=== PATIENT | male | born 1970 | race Caucasian/White ===

== ENCOUNTER → 2024-03-21 | Emergency (ER) | payer OTHER, MEDICAID ==
[~2024-03-21] VITALS: Ht 162.6 cm; Wt 72.6 kg
[~2024-03-21] MED LIST: CLON0.5T2; DIVA500T2; ETOMIDATE 20 MG/ 10 ML VIAL (AMIDATE) ONE; EZET10TA; GLYB1TAB3; HYDR-3917 PO; INSU100V46; LACO100T2; LISI5TAB; PIOG30TA70; PROPOFOL DRIP 100 ML IV ONE; SIMV80TA88; TOPI100T11
[2024-03-21 08:06] VITALS: BP_SYST 138; PULSE 81; RESP 18; TEMP 98.3; O2SAT 95
[2024-03-21] MEDS: HYDROcodone/ACETAMIN 10-325 MG TAB PO ONE (08:34)
[2024-03-21 10:38] LABS: BASOPHILS % (AUTO) 0.2 % (0.0-2.0); EOSINOPHILS % (AUTO) 0.2 % (0.0-4.0); HEMATOCRIT 42.2 % (36-54); HEMOGLOBIN 14.7 g/dL (14.0-18.0); LYMPHOCYTES # (AUTO) 2.1 K/uL (1.0-5.5); LYMPHOCYTES % (AUTO) 10.8 % (20.5-51.5); MEAN CORPUSCULAR HEMOGLOBIN 31 pg (27-31); MEAN CORPUSCULAR HGB CONC 35 % (32-36); MEAN CORPUSCULAR VOLUME 90 fL (79.0-98.0); MONOCYTES # (AUTO) 1.1 K/uL (0.0-1.0); MONOCYTES % (AUTO) 5.5 % (1.7-9.3); NEUTROPHILS # (AUTO) 16.2 K/uL (1.8-7.7); NEUTROPHILS % (AUTO) 83.3 % (40.0-70.0); PLATELET COUNT (AUTO) 300 K/uL (130-430); RED CELL DISTRIBUTION WIDTH 13.7 % (9.0-15.0); WHITE BLOOD COUNT (AUTO) 19.5 K/uL (4.8-10.8)
[2024-03-21 10:46] LABS: ALANINE AMINOTRANSFERASE 36 U/L (12-78); ANION GAP 15 (5-15); ASPARTATE AMINOTRANSFERASE 22 U/L (10-37); BILIRUBIN,DIRECT 0.1 mg/dL (0.0-0.3); CALCIUM 8.8 mg/dL (8.4-11.0); CARBON DIOXIDE 18 mmol/L (23-29); CHLORIDE 100 mmol/L (98-107); CREATININE 1.22 mg/dL (0.55-1.30); GFR AFRICAN AMERICAN 79 mL/min (>90); GLUCOSE 227 mg/dL (74-106); POTASSIUM 4.3 mmol/L (3.5-5.1); SODIUM SERUM 133 mmol/L (136-145); TOTAL BILIRUBIN 0.3 mg/dL (0.0-1.0); TOTAL PROTEIN, SERUM 7.9 g/dL (6.4-8.3); UREA NITROGEN, BLOOD 23 mg/dL (8-21)
[2024-03-21 10:50] LABS: GFR NON AFRICAN-AMERICAN 66 mL/min (>90)
[2024-03-21] MEDS: NACL 0.9% 1,000 ML IV ONE (11:33)
[2024-03-21 11:53] LABS: BILIRUBIN,URINE 1+ (NEGATIVE); BLOOD, URINE NEGATIVE (NEGATIVE); CLARITY/URINE CLEAR (CLEAR); COLOR,URINE YELLOW (YELLOW); GLUCOSE,URINE NEGATIVE (NEGATIVE); KETONES,URINE TRACE (NEGATIVE); LEUKOCYTE ESTERASE ,URINE NEGATIVE (NEGATIVE); NITRITE, URINE NEGATIVE (NEGATIVE); PH,URINE 5.5 (5.0-8.0); PROTEIN URINE 2+ (NEGATIVE)
[2024-03-21 12:06] LABS: RBC,URINE 0-3 /HPF (0-3); WBC,URINE 0-3 /HPF (0-3)
[2024-03-21 12:07] LABS: BACTERIA,URINE FEW /HPF (None Seen); HYALINE CASTS, URINE 0-10 /LPF (None Seen); MUCUS,URINE 3+ /LPF (None Seen)
[2024-03-21 14:01] LABS: ABG O2 SAT% ESTIMATE 91.8 % (94.0-100.0); BLOOD GAS PCO2 42.9 mmHg (32.0-45.0)
[2024-03-21 14:06] LABS: BLOOD GAS BASE EXCESS -11.2 mmol/L (-3.0-3.0); BLOOD GAS HCO3 16.4 mmol/L (21.0-27.0); BLOOD GAS PH 7.201 (7.350-7.450)
[2024-03-21 14:07] LABS: ALLEN'S TEST POSITIVE (P); BLOOD GAS PO2 74.6 mmHg (75.0-100.0)
[2024-03-21] MEDS: PROPOFOL 200MG/ 20ML VIAL (DIPRIVAN) IV ONE ×3 (14:34→16:39)
[2024-03-21] MEDS: fentaNYL CITRATE/PF 100 MCG/2 ML AMP IVP ONE (15:01)
[2024-03-21 16:40] VITALS: BP_SYST 148; PULSE 102; RESP 18; TEMP 97.3; O2SAT 95
== END | disposition home or self-care (01) ==
LOC: SED 07:55
DX: S13.4XXA Sprain of ligaments of cervical spine, initial encounter (principal); S33.5XXA Sprain of ligaments of lumbar spine, initial encounter; S00.83XA Contusion of other part of head, initial encounter; Z79.899 Other long term (current) drug therapy; W22.8XXA Striking against or struck by other objects, initial encounter; Y93.89 Activity, other specified; Y92.89 Other specified places as the place of occurrence of the external cause; Y99.8 Other external cause status
CPT/HCPCS: 99285; 31500; 70450; 96374; 71045; 96361; 96375; 80076; 80048; 81000; 81001; 85025; 87040; 84484; 36415; 93005; 72100; 71250; 72125; 72131; 74176; 82803; 82948; 83605; 36600; 96376; 81015; 94002; J2704; J3010; J7030; J3490